=== PATIENT | male | born 1980 ===

== ENCOUNTER → 2018-09-15 22:12 | Outpatient (REF) | payer OTHER, SELFPAY ==
[2018-09-19 09:52] LABS: Syphilis AB Cascading Reflex NEGATIVE (Negative)
== END ==
LOC: LAB 22:12
PROVIDERS: Visit Provider Family Medicine
DX: Z11.1 Encounter for screening for respiratory tuberculosis (principal); Z11.3 Encounter for screening for infections with a predominantly sexual mode of transmission
CPT/HCPCS: 36415; 86780; 87591

== ENCOUNTER → 2018-09-19 22:34 | Outpatient (REF) | payer OTHER, SELFPAY ==
[2018-09-22 18:27] LABS: NIL 0.06 IU/mL; QuantiFERON TB NEGATIVE (Negative); TB1-NIL 0.26 IU/mL; TB2-NIL 0.09 IU/mL
== END ==
LOC: LAB 22:34
PROVIDERS: Visit Provider Family Medicine
DX: A15.9 Respiratory tuberculosis unspecified (principal)
CPT/HCPCS: 36415; 86480